=== PATIENT | male | born 1965 | race Caucasian/White ===

== ENCOUNTER 2020-09-04 14:28 | Inpatient (IN) | payer BC, OTHER ==
[~2020-09-04] VITALS: Ht 188 cm; Wt 127.1 kg
[2020-09-04] MEDS ORDERED: SODIUM CHLORIDE 0.9% 1,000 ML IV ONE ×2 (15:00→19:30)
[2020-09-04 15:46] LABS: Basophils # (auto) 0 10 ^3/uL (0-0.2); Basophils % (auto) 0.1 % (0.0-2.0); Eosinophils # (auto) 0 10 ^3/uL (0-0.8); Hematocrit 48.7 % (41.0-53.0); Hemoglobin 16.4 g/dL (13.5-17.5); Lymphocytes # (auto) 0.3 10 ^3/uL (0.4-5.4); Lymphocytes % (auto) 2.4 % (10.0-50.0); Mean Corpuscular Hemoglobin 30.6 pg (28.0-32.0); Mean Corpuscular Hgb Conc. 33.7 g/dL (32.0-36.0); Mean Corpuscular Volume 90.6 fL (80.0-100.0); Monocytes # (auto) 0.5 10 ^3/uL (0-1.3); Monocytes % (auto) 3.4 % (0.0-12.0); Neutrophils # (auto) 12.9 10 ^3/uL (1.6-8.6); Neutrophils % (auto) 94.1 % (37.0-80.0); Nucleated Red Blood Cells % 0.1 %; Platelet Count (auto) 216 10^3/uL (140-450); Red Blood Cells 5.38 10^6/uL (4.5-5.90); Red Cell Distribution Width 13.2 % (11.8-14.3); White Blood Cell 13.7 10^3/uL (4.4-10.8)
[2020-09-04] MEDS ORDERED: METOPROLOL TARTRATE 1MG/1ML-5ML VIAL IV ONE (16:00)
[2020-09-04 16:01] LABS: Albumin 4.2 g/dL (3.4-5.0); Anion Gap 9 (5-15); Calcium 8.8 mg/dL (8.5-10.1); Carbon Dioxide 23 mmol/L (21-32); Chloride 108 mmol/L (98-107); GFR African American 126 mL/min; GFR Non-African American 104 mL/min; Glucose 114 mg/dL (74-106); Potassium 3.9 mmol/L (3.5-5.1); Sodium 140 mmol/L (136-145)
[2020-09-04 16:04] LABS: Alanine Aminotransferase 35 U/L (16-61); Alkaline Phosphatase 72 U/L (45-117); Aspartate Aminotransferase 30 U/L (15-37); BUN/Creatinine Ratio 24.4; Bilirubin, Total 0.6 mg/dL (0.2-1.0); Blood Urea Nitrogen 20 mg/dL (7-18); Total Protein 7.6 g/dL (6.4-8.2)
[2020-09-04 16:16] LABS: INR 0.98 (0.9-1.15); Partial Thromboplastin Time 26.5 sec (23.0-31.2)
[2020-09-04] MEDS ORDERED: ENOXAPARIN SOD 120 MG/0.8 ML SYRINGE SC ONE (17:00)
[2020-09-04] MEDS ORDERED: dilTIAZem 125mg/125ml BAG KIT 125 ML IV SCH (17:00)
[2020-09-04] MEDS ORDERED: dilTIAZem 25 MG/5 ML VIAL IV ONE (17:00)
[2020-09-04] MEDS ORDERED: NITROGLYCERIN 0.4 MG SL TAB SL PRN ×2 (17:00→18:00)
[2020-09-04] MEDS ORDERED: MORPHINE SULF INJ 2 MG/ML SYRINGE 1ML IV PRN ×3 (17:00→18:00)
[2020-09-04 17:08] LABS: CRP High Sensitivity 0.12 mg/dL (< 0.3)
[2020-09-04] MEDS ORDERED: dilTIAZem 125mg/125ml BAG KIT 125 ML IV ONE (17:18)
[2020-09-04] MEDS ORDERED: cefTRIAXone 1GM/50ML D5W 50 ML IV ONE (18:00)
[2020-09-04] MEDS ORDERED: HYDROcodone-ACET 5/325MG TAB PO PRN (18:00)
[2020-09-04] MEDS ORDERED: LORazepam 0.5 MG TAB PO PRN (18:00)
[2020-09-04] MEDS ORDERED: DOCUSATE SOD 100 MG CAP PO PRN (18:00)
[2020-09-04] MEDS ORDERED: ONDANSETRON HCL 4 MG/2 ML VIAL IV PRN (18:00)
[2020-09-04] MEDS ORDERED: ACETAMINOPHEN 325 MG TAB PO PRN (18:00)
[2020-09-04] MEDS ORDERED: SODIUM CHLORIDE 0.9% 1,000 ML IV SCH (18:00)
[2020-09-04] MEDS ORDERED: ALUM & MAG HYDROX-SIMETH LIQ(MAALOX) 30 ML PO PRN (18:00)
[2020-09-04] MEDS ORDERED: DICL1GEL50 TD (18:25)
[2020-09-04] MEDS ORDERED: APIX5TAB PO (18:25)
[2020-09-04] MEDS ORDERED: IMIQ5CRE4 EX (18:27)
[2020-09-04] MEDS ORDERED: CLINDAMYCIN 300MG IV 50 ML IV ONE (19:00)
[2020-09-04] MEDS ORDERED: METOPROLOL TARTRATE 1MG/1ML-5ML VIAL IV PRN (19:30)
[2020-09-04] MEDS ORDERED: METOPROLOL SUCCINATE XL 50 MG TAB PO ONE (19:30)
[2020-09-04] MEDS: SODIUM CHLORIDE 0.9% 1,000 ML IV SCH (19:36)
[2020-09-04] MEDS ORDERED: ATORVASTATIN 20 MG TAB PO SCH (22:00)
[2020-09-04] MEDS: FAMOTIDINE 20 MG TAB PO SCH (23:16)
[2020-09-05] VITALS (7 sets, daily range): BP systolic 102–133; BP diastolic 57–93
--- NOTE | 2020-09-05 03:00 | NUR ---
arrival note pt arrived via wheelchair. pt is ambulatory, and transferred self to hospital bed. pt on room air.
[2020-09-05] MEDS: CLINDAMYCIN 600MG IV 50 ML IV SCH ×2 (04:26→11:17)
[2020-09-05] MEDS ORDERED: ENOXAPARIN SOD 120 MG/0.8 ML SYRINGE SC SCH (05:00)
--- NOTE | 2020-09-05 07:28 | NUR ---
closing note pt is resting in semi fowlers with HOB at 30 degrees. no complaints of pain or discomfort. no s/s of distress at this time. endorsed care to day shift LON Mclean.
--- NOTE | 2020-09-05 08:00 | NUR ---
Opening Shift Note Assumed care of patient, awake, alert and oriented x4. No S/S of distress/SOB or pain. Tele# 21, sinus rhythm @ 63 bpm. IV to left forearm, 20 gauge, patent and infusing 0.9% NS @ 70 ml/hr. Instructed on POC and to call for assist PRN, verbalized understanding. Bed locked, in lowest position, call light within reach, will continue to monitor for changes Q1hr and PRN.
[2020-09-05] MEDS: cefTRIAXone 1GM/50ML D5W 50 ML IV SCH (08:44)
--- NOTE | 2020-09-05 09:19 | NUR ---
Verbal report given to Kaylee via phone. Patient to be transported to room 288-A
[2020-09-05] MEDS: FAMOTIDINE 20 MG TAB PO SCH ×2 (09:20→21:15)
--- NOTE | 2020-09-05 09:20 | NUR ---
EKG Informed LON Page, receiving nurse that Vidya Frost would like an EKG and to notify of results, verbalized understanding.
[2020-09-05] MEDS: METOPROLOL SUCCINATE XL 50 MG TAB PO SCH (09:21)
--- NOTE | 2020-09-05 09:30 | NUR ---
ROUNDS Vidya Frost at bedside for Cardiology consult. New orders received and followed through. Patient updated on plan of care, verbalized understanding.
--- NOTE | 2020-09-05 09:55 | NUR ---
Patient transferred to room 288- via wheelchair with all personal belongings, no distress noted upon departure.
[2020-09-05] MEDS ORDERED: ASPirin 81 mg TAB PO SCH (10:00)
--- NOTE | 2020-09-05 10:00 | NUR ---
Received patient from [facility]. Patient A/O x4. Reports slight SOB, encouraged to use 2L NC prn. Denies pain and no s/s of distress. Bed in low and locked position, rails x2 up for safety. Tele box 21 returned to ICU for another. Will continue to monitor q1hr and prn.
[2020-09-05] MEDS: SODIUM CHLORIDE 0.9% 1,000 ML IV SCH (11:10)
[2020-09-05] MEDS ORDERED: AMIODARONE HCL 200 MG TAB PO ONE (11:45)
[2020-09-05] MEDS ORDERED: IOHEXOL 350 MG/ML 100ML IJ ONE (15:24)
--- NOTE | 2020-09-05 18:40 | NUR ---
urine sample for UA collected and sent to lab
[2020-09-05 18:50] LABS: Urine WBC None Seen /hpf (0 - 3)
[2020-09-05 19:28] LABS: Alcohol, Urine < 3.0 mg/dL (0-10); Amphetamine Screen, Urine NEGATIVE (NEGATIVE); Barbiturate Scree,Urine NEGATIVE (NEGATIVE); Benzodiazephine Screen, Urine NEGATIVE (NEGATIVE); Cannabinoid Screen, Urine NEGATIVE (NEGATIVE); Cocaine Screen, Urine NEGATIVE (NEGATIVE); Opiate Scree,Urine NEGATIVE (NEGATIVE); Phencyclidine Screen, Urine NEGATIVE (NEGATIVE)
[2020-09-05 19:40] LABS: Urine Bacteria NONE SEEN /hpf (None Seen); Urine Blood Negative /uL (Negative)
[2020-09-05 19:54] LABS: Urine Specific Gravity > 1.050 (1.001-1.035)
--- NOTE | 2020-09-05 20:00 | NUR ---
Opening Shift Note Assumed care of patient, awake and alert. No S/S of distress/SOB or pain. Instructed on POC and to call for assist PRN, will continue to monitor for changes Q1hr and PRN.
[2020-09-05] MEDS: AMIODARONE HCL 200 MG TAB PO SCH (21:16)
[2020-09-05] MEDS: APIXABAN 5 MG TAB PO SCH (21:16)
[2020-09-05] MEDS ORDERED: APIXABAN 5 MG TAB PO SCH ×5 (22:00)
[2020-09-06 05:30] VITALS: BP 141/88
[2020-09-06 05:56] LABS: Basophils # (auto) 0 10 ^3/uL (0-0.2); Basophils % (auto) 0.1 % (0.0-2.0); Eosinophils # (auto) 0 10 ^3/uL (0-0.8); Eosinophils % (auto) 0.4 % (0.0-7.0); Hematocrit 43.6 % (41.0-53.0); Lymphocytes # (auto) 1.3 10 ^3/uL (0.4-5.4); Lymphocytes % (auto) 14.9 % (10.0-50.0); Mean Corpuscular Hemoglobin 31.6 pg (28.0-32.0); Mean Corpuscular Hgb Conc. 34.5 g/dL (32.0-36.0); Mean Corpuscular Volume 91.7 fL (80.0-100.0); Monocytes # (auto) 0.6 10 ^3/uL (0-1.3); Monocytes % (auto) 7.4 % (0.0-12.0); Neutrophils # (auto) 6.5 10 ^3/uL (1.6-8.6); Neutrophils % (auto) 77.2 % (37.0-80.0); Platelet Count (auto) 170 10^3/uL (140-450); Red Blood Cells 4.76 10^6/uL (4.5-5.90); Red Cell Distribution Width 13.5 % (11.8-14.3); White Blood Cell 8.5 10^3/uL (4.4-10.8)
[2020-09-06 06:16] LABS: Calcium 8.1 mg/dL (8.5-10.1); Potassium 3.9 mmol/L (3.5-5.1)
[2020-09-06 06:20] LABS: BUN/Creatinine Ratio 19.2
--- NOTE | 2020-09-06 07:20 | NUR ---
Report given to Thanh Paige, patient is resting no distress.
--- NOTE | 2020-09-06 07:30 | NUR ---
Opening Shift Note: Assumed care of patient, awake and alert. No S/S of distress/SOB or pain. Bed in lowest locked position, side rails up x 2 call light within reach. Patient instructed on POC and to call for assist PRN, will continue to monitor for changes Q1hr and PRN.
[2020-09-06 08:47] VITALS: BP 136/84
[2020-09-06] MEDS: AMIODARONE HCL 200 MG TAB PO SCH (09:05)
[2020-09-06] MEDS: FAMOTIDINE 20 MG TAB PO SCH (09:05)
[2020-09-06] MEDS: cefTRIAXone 1GM/50ML D5W 50 ML IV SCH (09:05)
[2020-09-06] MEDS: APIXABAN 5 MG TAB PO SCH (09:05)
[2020-09-06] MEDS: METOPROLOL SUCCINATE XL 50 MG TAB PO SCH (09:06)
--- NOTE | 2020-09-06 09:15 | NUR ---
[employer] TRANSIT BUS DRIVER AT BEDSIDE.
[2020-09-06 10:27] VITALS: BP 136/84
--- NOTE | 2020-09-06 10:44 | NUR ---
FAXED PATIENT HEALTH SUMMARY TO DR. DENNISON OFFICE.
--- NOTE | 2020-09-06 11:11 | NUR ---
Discharge instructions given as ordered. Encourage to follow up with PMD as instructed. All questions and concerns addressed. Patient verbalized understanding. Medication reconciliation form completed and copy given to patient. Patient educated on new medications and continuing home medications. Unable to schedule appointment, patient educated to call for appointment when office is open. IV removed with catheter intact, pressure dressing applied. Telemetry unit returned to ICU, SPOKE WITH BB. Patient ambulated to vehicle with all personal belongings, accompanied by staff. No distress noted at time of departure.
== END 2020-09-06 11:11 | disposition home or self-care (01) | DRG 309 ==
LOC: ER 14:28 → TELE 14:29 → TELE-E-ADS 09-05 03:16 → TELE-WESTW 09-05 09:59
PROVIDERS: ADMIT Hospitalist; ATTEND Hospitalist
DX: I48.91 Unspecified atrial fibrillation (principal); N17.9 Acute kidney failure, unspecified; I82.621 Acute embolism and thrombosis of deep veins of right upper extremity; L03.113 Cellulitis of right upper limb; I47.1 Supraventricular tachycardia; E66.01 Morbid (severe) obesity due to excess calories; E78.5 Hyperlipidemia, unspecified; I10 Essential (primary) hypertension; Z20.828 Contact with and (suspected) exposure to other viral communicable diseases; Z79.01 Long term (current) use of anticoagulants; Z79.899 Other long term (current) drug therapy; Z86.718 Personal history of other venous thrombosis and embolism; Z68.36 Body mass index [BMI] 36.0-36.9, adult
CPT/HCPCS: 36415; 71045; 71275; 80048; 80053; 80061; 80307; 81001; 82728; 83036; 83605; 83615; 83735; 83880; 84443; 84484; 85025; 85379; 85610; 85730; 86141; 87040; 87086; 87426; 93005; 93306; 93971; 96361; 96372; 96374; G0378; J0696; J3490

== ENCOUNTER → 2021-06-11 | Outpatient (CLI) | payer BC ==
[~2021-06-11] MED LIST: APIX5TAB PO; DICL1GEL50 TD; IMIQ5CRE4 EX
[2021-06-11 07:40] LABS: Basophils # (auto) 0 10 ^3/uL (0-0.2); Basophils % (auto) 0.4 % (0.0-2.0); Eosinophils # (auto) 0.1 10 ^3/uL (0-0.8); Eosinophils % (auto) 1.2 % (0.0-7.0); Mean Corpuscular Hemoglobin 31.2 pg (28.0-32.0); Mean Corpuscular Hgb Conc. 34.7 g/dL (32.0-36.0); Mean Corpuscular Volume 89.7 fL (80.0-100.0); Monocytes # (auto) 0.4 10 ^3/uL (0-1.3); Monocytes % (auto) 6.6 % (0.0-12.0); Neutrophils # (auto) 4.8 10 ^3/uL (1.6-8.6); Neutrophils % (auto) 75.8 % (37.0-80.0); Nucleated Red Blood Cells % 0.1 %; Red Blood Cells 5.14 10^6/uL (4.5-5.90); Red Cell Distribution Width 13.4 % (11.8-14.3); White Blood Cell 6.3 10^3/uL (4.4-10.8)
[2021-06-11 08:01] LABS: BUN/Creatinine Ratio 19.5; Calcium 8.6 mg/dL (8.5-10.1); Potassium 4.6 mmol/L (3.5-5.1)
[2021-06-11 08:08] LABS: INR 0.97 (0.9-1.15); Partial Thromboplastin Time 28.4 sec (23.0-31.2)
== END | disposition home or self-care (01) ==
LOC: LAB 06:55
DX: Q27.30 Arteriovenous malformation, site unspecified (principal)
CPT/HCPCS: 36415; 80048; 85025; 85610; 85730